=== PATIENT | female | born 1930 | race Caucasian/White ===

== ENCOUNTER 2016-07-12 13:05 | Inpatient (IN) ==
[2016-07-12] MEDS ORDERED: Dexamethasone 4 MG/ML VIAL ONE (13:14)
[2016-07-12] MEDS ORDERED: *HR* Succinylcholine 200 MG/10 ML VIAL IVP ONE (13:14)
[2016-07-12] MEDS ORDERED: *HR* FentaNYL (PF) 100 MCG/2 ML VIAL ONE (13:14)
[2016-07-12] MEDS ORDERED: *HR* Midazolam HCl 2 MG/2 ML VIAL ONE (13:14)
[2016-07-12] MEDS ORDERED: *HR* Propofol 200 MG/20 ML VIAL IVP ONE (13:14)
[2016-07-12] MEDS ORDERED: Ondansetron 4 MG/2 ML VIAL ONE (13:14)
[2016-07-12] MEDS ORDERED: Lidocaine 1% 20 ML MDV ID ONE (13:42)
[2016-07-12] MEDS ORDERED: CeFAZolin Pre 2,000 MG/100 ML 2,000 MG/100 ML BAG IVPB ONE (13:42)
[2016-07-12] MEDS ORDERED: Ringers Solution, Lactated 1,000 ML IVC SCH (13:45)
--- NOTE | 2016-07-12 13:46 | Urology History & Physical ---
Date of Encounter: 07/12/16 Time of Encounter: 13:44 Assessment and Plan (1) Hematuria Current Visit: Yes Status: Acute 85-year-old woman with a history of bladder erythema. This has been persistent. Cytology was negative. However, I recommend obtaining a bladder biopsy with bilateral retrograde pyelograms to confirm that there is no evidence of cancer here. We discussed the procedure which would be a cystoscopy and bladder biopsy with bilateral retrograde pyelograms. She was informed of the risks of the surgery which include but are not limited to bleeding, infection, injury to structures, need for further procedures, and the risk of anesthesia. She is willing to proceed. History of Present Illness Chief complaint: hematuria HPI: Ms. Patten is a 85-year-old woman with a history of hematuria and bladder erythema. She previously had a cystoscopy which showed areas of inflammation within the bladder. The erythema was persistent and she elected to undergo a cystoscopy with bladder biopsy and bilateral retrograde pyelograms. Past Med Surg Social Fam HX - Past Medical History Medical history: arthritis, cancer, CVA, GERD, hyperlipidemia, hypertension, osteoporosis Psychiatric history: anxiety, depression - Past Surgical History Surgical History: breast surgery - Social History Smoking Status: Never smoker Smokeless Tobacco Status: No Alcohol use: none Drug use: none Medications and Allergies Aspirin/Dipyridamole 25/200 MG [Aggrenox 25mg-200mg] 1 cap PO DAILY 12/24/14 [ History] ClonazePAM [Klonopin] 0.5 mg PO HS PRN 12/24/14 [History] Losartan/HCTZ [Hyzaar 50-12.5 Tablet] 1 each PO DAILY 12/24/14 [History] [place]-3 Fatty Acids [Fish Oil] 1,000 mg PO BID 12/24/14 [History] Omeprazole [PriLOSEC] 40 mg PO DAILY 12/24/14 [History] Potassium Chloride 10 meq PO DAILY 12/24/14 [History] Raloxifene HCl [Evista] 60 mg PO DAILY 12/24/14 [History] Simvastatin 20 mg PO HS 12/24/14 [History] Alendronate Sodium [Fosamax] 70 mg PO WE 06/18/16 [History] Allergies CURTIS Inhibitors Adverse Reaction (Verified 06/18/16 08:59) Cough codeine Adverse Reaction (Verified 06/18/16 08:59) Dizziness Review of Systems - Constitutional no chills, no fever(s) - EENT Nose, mouth and throat: no dizziness - Cardiovascular no chest pain - Respiratory no dyspnea - Gastrointestinal no nausea, no vomiting - Genitourinary Genitourinary: no flank pain, no hematuria - Musculoskeletal no back pain - Integumentary no erythema, no rash - Neurological no weakness - Psychiatric no suicidal ideation - Hematologic/Lymphatic no easy bleeding - Allergic/Immunologic no wheezing Exam - General physical appearance Present: well developed, well nourished, no distress - Eyes Absent: icteric - ENT Present: normal nares - Neck Present: trachea midline - Respiratory Present: normal respiratory effort - Cardiovascular Cardiovascular exam IM: RRR - Abdomen Abdomen: Present: soft Urology Results - Labs All other labs normal.
--- NOTE | 2016-07-12 13:58 | Anesthesia Evaluation PreOp ---
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 loss.) Other Medical History: Denies Any Significant HX, GERD Anesthesia History: No Prior Anesthetic Complications, Past Anesthesia Alcohol Use: none Drug use: none Medications and Allergies Aspirin/Dipyridamole 25/200 MG [Aggrenox 25mg-200mg] 1 cap PO DAILY 12/24/14 [ History] ClonazePAM [Klonopin] 0.5 mg PO HS PRN 12/24/14 [History] Losartan/HCTZ [Hyzaar 50-12.5 Tablet] 1 each PO DAILY 12/24/14 [History] [place]-3 Fatty Acids [Fish Oil] 1,000 mg PO BID 12/24/14 [History] Omeprazole [PriLOSEC] 40 mg PO DAILY 12/24/14 [History] Potassium Chloride 10 meq PO DAILY 12/24/14 [History] Raloxifene HCl [Evista] 60 mg PO DAILY 12/24/14 [History] Simvastatin 20 mg PO HS 12/24/14 [History] Alendronate Sodium [Fosamax] 70 mg PO WE 06/18/16 [History] Allergies CURTIS Inhibitors Adverse Reaction (Verified 07/12/16 13:52) Cough - Meds/Allergy Pre-op Review Medications Reviewed: Yes Allergies Reviewed: Yes Beta Blockers on Current Med List: No Anesthesia Results - Labs Laboratory Tests 07/03/15 06/02/16 06/02/16 10:30 09:39 09:39 Hgb 12.6 Hct 37.3 Plt Count 144 PT 11.1 INR 1.0 APTT 31.3 Sodium 144 Potassium 3.7 Chloride 108 Carbon Dioxide 26 BUN 23 H Creatinine 0.73 - Imaging EKG: report reviewed Anesthesia Exam Height: 4'10" Weight: 135 NPO (# of Hours): over 8 hours - HEENT Pupil (Motor): Pupils equal Mallampati: II Teeth: Prosthesis (Has dental posts) - 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
--- NOTE | 2016-07-12 14:55 | Operative Note ---
Date of procedure: 07/12/16 Pre-op diagnosis: Bladder lesion Post-op diagnosis: same Procedure: Cystoscopy, bilateral retrograde pyelograms, bladder biopsy. Implants: 18 Mongolian Hearn catheter. Complications: none. Anesthesia: BREE Surgeon: Gio Sutton Estimated blood loss (cc): 1 Specimen: bladder biopsies Condition: stable Disposition: PACU Procedure in Detail: Indications: Cleo is an 85-year-old woman who has a history of hematuria. In office cystoscopy showed evidence of small patches of erythema. She elected to undergo cystoscopy and bladder biopsy with bilateral trigger polygrams. She was informed of the risks of the procedure which include but are not limited to bleeding, infection, injury to other structures, need for further procedures, and the risk of anesthesia. She is willing to proceed. Procedure: After informed consent was obtained and was brought back to the operating room and placed in supine position. A timeout was performed. Gen. anesthesia was administered and a laryngeal mask airway was placed. She was placed in low lithotomy position. Her genitalia were prepped and draped in the usual sterile fashion. Cystoscopy was then performed. The anterior urethra was unremarkable. The left ureteral orifice was cannulated with a open ended catheter and a retrograde pyelogram was performed. There is no evidence of filling defect. There is no blunting of the calyces. The right ureteral orifice was then cannulated with the open-ended catheter. The retrograde pyelogram again showed a normal ureter. There is no evidence of hydronephrosis on the right side nor on the left side. There is no evidence of filling defect. The calyces appeared normal. There was a patch of erythema on the posterior wall and the dome. The biopsy forceps were inserted and the scope. 4 bladder biopsies were obtained from this area, including one from the trigone. The biopsy sites were then fulgurated using the [place]. The bladder was quite friable. Other locations began to bleed. It was difficult to cauterize all these areas. I felt to be best to leave a catheter in and met her for observation. The scope was then removed. An 18 Mongolian Hearn catheter was then placed. The catheter irrigated fairly clear. Cleo was then awakened from general anesthesia and brought to the recovery room in good condition. All sponge, needle, and instrument counts were correct.
--- NOTE | 2016-07-12 15:40 | Anesthesia Evaluation Post Op ---
Date of Encounter: 07/12/16 Time of Encounter: 15:15 - Vital Signs Vital Signs: Last Vital Signs Temp 97.6 F 07/12/16 15:27 Pulse 59 07/12/16 15:27 Resp 16 07/12/16 15:27 BP 166/72 07/12/16 15:27 Pulse Ox 100 07/12/16 15:27 - Lungs Lungs: Clear Ascult./Percussion - Airway Airway: Non-obstructed - Cardiovascular Regular Rate - Mental Status Mental Status: Alert & Oriented, Answers Appropriately - Pain Pain Scale: 3 - Nausea Vomiting Nausea Vomiting: Not Present - Hydration Hydration: NPO, Hearn catheter - Discharge PostOp Status: Transfer Patient to floor
[2016-07-12] MEDS ORDERED: *HR* Promethazine 25 MG/ML VIAL IVP PRN (16:03)
[2016-07-12] MEDS ORDERED: Naloxone 0.4 MG/ML INJ IVP PRN (16:03)
[2016-07-12] MEDS ORDERED: *HR* HYDROmorphone 2 MG/ML SYRINGE IVP PRN (16:03)
[2016-07-12] MEDS ORDERED: Ondansetron 4 MG/2 ML VIAL IVP PRN (16:03)
[2016-07-12] MEDS: 0.9 % Sodium Chloride 1,000 ML IVC SCH (16:49)
[2016-07-12] MEDS: clonazePAM 0.5 MG TABLET PO PRN (21:30)
[2016-07-13] MEDS: 0.9 % Sodium Chloride 1,000 ML IVC SCH ×3 (01:30→19:47)
[2016-07-13] MEDS: *HR* OxyCODONE/APAP 5/325 TABLET PO PRN (04:26)
--- NOTE | 2016-07-13 07:45 | Urology Progress Note ---
Date of Encounter: 07/13/16 Time of Encounter: 07:43 - Assessment and Plan (1) Hematuria Current Visit: Yes Status: Acute Assessment and plan: Continue catheter. I will keep her in house today and wait for her urine to clear. Check labs today. Hand irrigate prn. Consider changing catheter for CBI if bleeding persists. Progress Note Narrative: 85 year old woman s/p cystoscopy, bladder biopsy, and bilateral retrograde pyelograms. POD #1. She had some hematuria overnight. I irrigated her catheter today. Only a small amount of clot returned. Objective Initial Vital Signs Temp Pulse Resp BP Pulse Ox 98.0 F 59 16 142/66 98 07/12/16 13:58 07/12/16 13:58 07/12/16 13:58 07/12/16 13:58 07/12/16 13:58 - General physical appearance Present: well developed, well nourished, no distress - Respiratory Present: normal respiratory effort - Abdomen Present: soft - Genitourinary Urine Appearance: Present: Hematuria - VTE Documentation of Mechanical Device: Intermittent pneumatic compression device Consult Discharge Plan - Plan Referrals: Lizabeth Cummings DO [Primary Care Provider] -
[2016-07-13] MEDS: Losartan/HCTZ 50-12.5 TABLET PO SCH (07:59)
[2016-07-13 09:01] LABS: Basophils % 0.2 %; Hematocrit 35.3 % (35.3-44.9); Hemoglobin 12.2 g/dL (11.5-15.4); Immature Granulocytes % 0.3 % (0-4); Lymphocytes # 1.5 K/mcL (0.6-4.6); Lymphocytes % 23.5 %; Mean Corpuscular HGB Conc 34.6 g/dL (31.6-35.5); Mean Corpuscular Hemoglobin 34.3 pg (28.0-33.3); Mean Corpuscular Volume 99.2 fL (83.0-100.0); Mean Platelet Volume 9.9 fL (9.4-12.4); Monocytes # 0.5 K/mcL (0.0-1.3); Monocytes % 7.7 %; Neutrophils # 4.3 K/mcL (1.6-8.9); Platelet Count 136 K/mcL (140-400); Red Blood Count 3.56 M/mcL (3.82-4.97); Red Cell Distribution Width 11.8 % (11.5-14.5); Segmented Neutrophils % 68.3 %
[2016-07-13 09:10] LABS: BUN/Creatinine Ratio 22 (6-26); Blood Urea Nitrogen 15 mg/dL (7-20); Calcium 8.4 mg/dL (8.6-10.8); Carbon Dioxide 22 mEq/L (19-29); Chloride 110 mEq/L (98-109); Glucose 101 mg/dL (70-99); Osmolality,Calculated 289 (280-300); Potassium 3.8 mEq/L (3.5-4.5); Sodium 139 mEq/L (136-145); eGFR For African Americans > 60 (> 60); eGFR For Non-African Americans > 60 (> 60)
[2016-07-13] MEDS: clonazePAM 0.5 MG TABLET PO PRN (23:20)
[2016-07-14] MEDS: 0.9 % Sodium Chloride 1,000 ML IVC SCH ×4 (06:07→20:06)
--- NOTE | 2016-07-14 07:16 | Urology Progress Note ---
Date of Encounter: 07/14/16 Time of Encounter: 07:14 - Assessment and Plan (1) Hematuria Current Visit: Yes Status: Acute Assessment and plan: Continue phelan catheter for now. Will reassess this afternoon. If urine remains bloody, will need to change out to three way for CBI. Will hold off on return to OR for now. Check labs. Progress Note Narrative: Still with hematuria overnight. I hand irrigated out a small amount of clot, but the urine remains somewhat bloody. Objective Initial Vital Signs Temp Pulse Resp BP Pulse Ox 98.0 F 59 16 142/66 98 07/12/16 13:58 07/12/16 13:58 07/12/16 13:58 07/12/16 13:58 07/12/16 13:58 - General physical appearance Present: well developed, well nourished, no distress - Respiratory Present: normal respiratory effort - Abdomen Present: soft - Genitourinary Urine Appearance: Present: Hematuria - Labs 07/13/16 08:15 07/13/16 08:15 Diabetes panel 07/13/16 Range/Units 08:15 Sodium 139 (136-145) mEq/L Potassium 3.8 (3.5-4.5) mEq/L Chloride 110 H (98-109) mEq/L Carbon Dioxide 22 (19-29) mEq/L BUN 15 (7-20) mg/dL Creatinine 0.68 (0.57-1.11) mg/dL Glucose 101 H (70-99) mg/dL Calcium 8.4 L (8.6-10.8) mg/dL Calcium panel 07/13/16 Range/Units 08:15 Calcium 8.4 L (8.6-10.8) mg/dL Pituitary panel 07/13/16 Range/Units 08:15 Sodium 139 (136-145) mEq/L Potassium 3.8 (3.5-4.5) mEq/L Chloride 110 H (98-109) mEq/L Carbon Dioxide 22 (19-29) mEq/L BUN 15 (7-20) mg/dL Creatinine 0.68 (0.57-1.11) mg/dL Glucose 101 H (70-99) mg/dL Calcium 8.4 L (8.6-10.8) mg/dL Adrenal panel 07/13/16 Range/Units 08:15 Sodium 139 (136-145) mEq/L Potassium 3.8 (3.5-4.5) mEq/L Chloride 110 H (98-109) mEq/L Carbon Dioxide 22 (19-29) mEq/L BUN 15 (7-20) mg/dL Creatinine 0.68 (0.57-1.11) mg/dL Glucose 101 H (70-99) mg/dL Calcium 8.4 L (8.6-10.8) mg/dL - VTE Documentation of Mechanical Device: Intermittent pneumatic compression device Consult Discharge Plan - Plan Referrals: Lizabeth Cummings DO [Primary Care Provider] - 07/19/16 8:45 am ( )
[2016-07-14] MEDS: Losartan/HCTZ 50-12.5 TABLET PO SCH (07:35)
[2016-07-14 08:34] LABS: Hematocrit 34.8 % (35.3-44.9); Hemoglobin 11.6 g/dL (11.5-15.4)
--- NOTE | 2016-07-14 17:29 | Event Note ---
Date of Encounter: 07/14/16 Time of Encounter: 17:29 I changed out the 18 [place]an catheter for a [address] Some clot was irrigated out. CBI was started.
[2016-07-14] MEDS: clonazePAM 0.5 MG TABLET PO PRN (22:47)
[2016-07-15] MEDS: 0.9 % Sodium Chloride 1,000 ML IVC SCH ×3 (04:10→21:28)
[2016-07-15 04:32] LABS: INR 1.1; Prothrombin Time 11.7 Seconds (9.4-12.1)
[2016-07-15 05:30] LABS: Basophils % 0.4 %; Eosinophils # 0.1 K/mcL (0.0-0.6); Eosinophils % 2.1 %; Hemoglobin 10.3 g/dL (11.5-15.4); Immature Granulocytes % 0.6 % (0-4); Lymphocytes # 1.9 K/mcL (0.6-4.6); Lymphocytes % 28.2 %; Mean Corpuscular HGB Conc 34.3 g/dL (31.6-35.5); Mean Corpuscular Hemoglobin 34.1 pg (28.0-33.3); Mean Corpuscular Volume 99.3 fL (83.0-100.0); Monocytes # 0.6 K/mcL (0.0-1.3); Monocytes % 8.9 %; Platelet Count 126 K/mcL (140-400); Red Blood Count 3.02 M/mcL (3.82-4.97); Red Cell Distribution Width 12.2 % (11.5-14.5); Segmented Neutrophils % 59.8 %
[2016-07-15 06:56] LABS: BUN/Creatinine Ratio 20 (6-26); Blood Urea Nitrogen 13 mg/dL (7-20); Carbon Dioxide 21 mEq/L (19-29); Chloride 113 mEq/L (98-109); Glucose 90 mg/dL (70-99); Osmolality,Calculated 294 (280-300); Potassium 3.6 mEq/L (3.5-4.5); Sodium 142 mEq/L (136-145); eGFR For African Americans > 60 (> 60); eGFR For Non-African Americans > 60 (> 60)
--- NOTE | 2016-07-15 07:20 | Urology Progress Note ---
Date of Encounter: 07/15/16 Time of Encounter: 07:19 - Assessment and Plan (1) Hematuria Current Visit: Yes Status: Acute Assessment and plan: 85 year old woman with continued hematuria. 1. Recommend proceeding to OR tonight for cystoscopy, clot evacuation, and fulguration. All risks were informed. She is willing to proceed. NPO today. Progress Note Narrative: 85 year old woman with hematuria. I started CBI yesterday. Her hematocrit continues to drift down. Urine is light pink on moderate CBI. Objective Initial Vital Signs Temp Pulse Resp BP Pulse Ox 98.0 F 59 16 142/66 98 07/12/16 13:58 07/12/16 13:58 07/12/16 13:58 07/12/16 13:58 07/12/16 13:58 - General physical appearance Present: well developed, well nourished, no distress - Respiratory Present: normal respiratory effort - Abdomen Present: soft - Genitourinary Present: normal external genitalia Urine Appearance: Present: Hematuria (pink on moderate cbi) - Labs 07/15/16 03:05 07/15/16 03:05 Diabetes panel 07/15/16 Range/Units 03:05 Sodium 142 (136-145) mEq/L Potassium 3.6 (3.5-4.5) mEq/L Chloride 113 H (98-109) mEq/L Carbon Dioxide 21 (19-29) mEq/L BUN 13 (7-20) mg/dL Creatinine 0.65 (0.57-1.11) mg/dL Glucose 90 (70-99) mg/dL Calcium 8.0 L (8.6-10.8) mg/dL Calcium panel 07/15/16 Range/Units 03:05 Calcium 8.0 L (8.6-10.8) mg/dL Pituitary panel 07/15/16 Range/Units 03:05 Sodium 142 (136-145) mEq/L Potassium 3.6 (3.5-4.5) mEq/L Chloride 113 H (98-109) mEq/L Carbon Dioxide 21 (19-29) mEq/L BUN 13 (7-20) mg/dL Creatinine 0.65 (0.57-1.11) mg/dL Glucose 90 (70-99) mg/dL Calcium 8.0 L (8.6-10.8) mg/dL Adrenal panel 07/15/16 Range/Units 03:05 Sodium 142 (136-145) mEq/L Potassium 3.6 (3.5-4.5) mEq/L Chloride 113 H (98-109) mEq/L Carbon Dioxide 21 (19-29) mEq/L BUN 13 (7-20) mg/dL Creatinine 0.65 (0.57-1.11) mg/dL Glucose 90 (70-99) mg/dL Calcium 8.0 L (8.6-10.8) mg/dL - VTE Documentation of Mechanical Device: Intermittent pneumatic compression device Consult Discharge Plan - Plan Referrals: Lizabeth Cummings DO [Primary Care Provider] - 07/19/16 8:45 am ( )
[2016-07-15] MEDS: Levofloxacin 500 MG/100 ML 500 MG/100 ML BAG IVPB SCH (09:49)
[2016-07-15] MEDS: Losartan/HCTZ 50-12.5 TABLET PO SCH (09:49)
--- NOTE | 2016-07-15 11:51 | Anesthesia Evaluation PreOp ---
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) Other Medical History: GERD Anesthesia History: No Prior Anesthetic Complications, Past Anesthesia (tka, cystoscopy) Alcohol Use: none Drug use: none Medications and Allergies Aspirin/Dipyridamole 25/200 MG [Aggrenox 25mg-200mg] 1 cap PO DAILY 12/24/14 [ History] ClonazePAM [Klonopin] 0.5 mg PO HS PRN 12/24/14 [History] Losartan/HCTZ [Hyzaar 50-12.5 Tablet] 1 each PO DAILY 12/24/14 [History] [place]-3 Fatty Acids [Fish Oil] 1,000 mg PO BID 12/24/14 [History] Omeprazole [PriLOSEC] 40 mg PO DAILY 12/24/14 [History] Potassium Chloride 10 meq PO DAILY 12/24/14 [History] Raloxifene HCl [Evista] 60 mg PO DAILY 12/24/14 [History] Simvastatin 20 mg PO HS 12/24/14 [History] Alendronate Sodium [Fosamax] 70 mg PO WE 06/18/16 [History] Allergies CURTIS Inhibitors Adverse Reaction (Verified 07/12/16 13:52) Cough - Meds/Allergy Pre-op Review Medications Reviewed: Yes Allergies Reviewed: Yes Beta Blockers on Current Med List: No Anesthesia Results - Labs 07/15/16 03:05 07/15/16 03:05 - Imaging EKG: report reviewed (sr/pvc) Anesthesia Exam O2 Sat Weight 64 kg O2 Sat by Pulse Oximetry 96 O2 Sat by Pulse Oximetry 94 O2 Sat by Pulse Oximetry 94 O2 Sat by Pulse Oximetry 96 O2 Sat by Pulse Oximetry 93 Vital Signs Temp Pulse Resp BP Pulse Ox 98.0 F 59 16 142/66 98 07/12/16 13:58 07/12/16 13:58 07/12/16 13:58 07/12/16 13:58 07/12/16 13:58 Height: 1.46 Weight: 64 NPO (# of Hours): >8 - HEENT Pupil (Motor): Pupils equal, EOMI Mallampati: II Teeth: Prosthesis Denture Type: Upper: Complete, Lower: Complete Oral Opening: Greater than 3 - POWDERED SUGAR SUPERVISOR POWDERED SUGAR SUPERVISOR Motor: Normal RUE, Normal LUE, Normal Face, Deficit RLE, Deficit LLE POWDERED SUGAR SUPERVISOR Sensory: Normal: RUE, LUE, Face, Deficit: RLE, LLE - Cardiac Rhythm: Regular Murmur: None - Pulmonary Breath Sounds: bilateral Clear Respiratory Effort: Symmetrical Anesthesia Assess/Plan ASA Score: 3 Modified [place] Scale for Level of Consciousness: Cooperative, oriented, and tranquil Anesthetic Plan: General Monitoring Plan: Standard Monitors Recovery Plan: PACU
--- NOTE | 2016-07-15 14:40 | Event Note ---
Date of Encounter: 07/15/16 Time of Encounter: 14:40 Urine appeared more clear this afternoon on slow CBI. I will cancel the case today. We will consider OR tomorrow if HCt hasn't stabilized.
[2016-07-15] MEDS: *HR* OxyCODONE/APAP 5/325 TABLET PO PRN (21:39)
[2016-07-15] MEDS: clonazePAM 0.5 MG TABLET PO PRN (23:15)
[2016-07-16] MEDS: 0.9 % Sodium Chloride 1,000 ML IVC SCH ×3 (05:41→21:43)
[2016-07-16 06:36] LABS: Hematocrit 28.8 % (35.3-44.9); Hemoglobin 9.8 g/dL (11.5-15.4)
[2016-07-16] MEDS ORDERED: 0.9 % Sodium Chloride 500 ML IVC ONE (07:05)
--- NOTE | 2016-07-16 07:05 | Urology Progress Note ---
Date of Encounter: 07/16/16 Time of Encounter: 07:03 - Assessment and Plan (1) Hematuria Current Visit: Yes Status: Acute Assessment and plan: Hematuria seems improved. Urine color clear on slow cbi. HCT has drifted down again. Will stop CBI. Will give bolus of normal saline for slightly low HCT. Clear liquid diet. Will repeat H&H around 12pm. Progress Note Narrative: Urine is much more clear today. On very slow CBI. BP dropped into the 90's systolic. No lightheadedness. Objective Initial Vital Signs Temp Pulse Resp BP Pulse Ox 98.0 F 59 16 142/66 98 07/12/16 13:58 07/12/16 13:58 07/12/16 13:58 07/12/16 13:58 07/12/16 13:58 - General physical appearance Present: well developed, well nourished, no distress - Respiratory Present: normal respiratory effort - Abdomen Present: soft - Genitourinary Urine Appearance: Present: Clear - Labs 07/16/16 06:08 07/15/16 03:05 - VTE Documentation of Mechanical Device: Intermittent pneumatic compression device Consult Discharge Plan - Plan Referrals: Lizabeth Cummings DO [Primary Care Provider] - 07/19/16 8:45 am ( )
[2016-07-16] MEDS: Levofloxacin 500 MG/100 ML 500 MG/100 ML BAG IVPB SCH (08:13)
[2016-07-16] MEDS: Losartan/HCTZ 50-12.5 TABLET PO SCH (11:56)
[2016-07-16 12:00] LABS: Hematocrit 31.5 % (35.3-44.9); Hemoglobin 11.1 g/dL (11.5-15.4)
[2016-07-16] MEDS ORDERED: *HR* FentaNYL (PF) 100 MCG/2 ML VIAL ONE (18:26)
[2016-07-16] MEDS ORDERED: *HR* Propofol 200 MG/20 ML VIAL IVP ONE (18:26)
[2016-07-16] MEDS ORDERED: Lidocaine -MPF 2% 2 ML VIAL ONE (18:26)
[2016-07-16] MEDS ORDERED: Ondansetron 4 MG/2 ML VIAL ONE (19:18)
--- NOTE | 2016-07-16 19:32 | Operative Note ---
Date of procedure: 07/16/16 Pre-op diagnosis: Hematuria Post-op diagnosis: same Procedure: Cystoscopy, clot evacuation, fulguration Implants: [address]. Complications: none. Anesthesia: BREE Surgeon: Gio Sutton Estimated blood loss (cc): 1 Specimen: none Condition: stable Disposition: PACU Procedure in Detail: Indications: Ms. Patten is an 85-year-old woman who underwent a cystoscopy and bladder biopsy on July 12, 2016. She has had persistent hematuria. Conservative measures have not been successful with continuous bladder irrigation. She elected to undergo a cystoscopy, clot evacuation and fulguration. She is aware of the risks of the procedure including but not limited to bleeding, infection, injury to other structures, need for further procedures, bladder perforation, and the risk of anesthesia. She is willing to proceed. Procedure: After informed consent was obtained the patient was brought back to the operating room and placed in the supine position. A timeout was performed. Gen. anesthesia was administered and an laryngeal mask airway was placed. She was then placed in lithotomy position. Her genitalia were prepped and draped in the usual sterile fashion. Using the resector sheath and the visual obturator cystoscopy was performed. The urethra was unremarkable. Upon entering the bladder there is only a small amount of clot. There is an area off to the left anterior aspect of the bladder where a small clot was noted. This was freed off the bladder in the area was cauterized. Along the posterior wall the bladder was a very raw surface where I had previously cauterized. I used the resecting loop and the rollerball to liberally fulgurate this area. Unfortunately there continued to be a very slow bleed from the suction and the bladder. There is no other area of arterial bleed. After observing the bladder it seemed that the bleeding was fairly minimal and I felt that it would hopefully stop with the use of continuous bladder irrigation. At this point I removed the resector sheath. A 22 Amharic three-way catheter was placed. The bladder irrigated clear. Continuous bladder irrigation was resumed. The patient was then awakened from general anesthesia and brought to the recovery room in good condition. All sponge, needle, and instrument counts were correct.
[2016-07-16] MEDS ORDERED: *HR* HYDROmorphone (PF) 1 MG/ML SYRINGE IVP PRN (19:49)
[2016-07-16] MEDS ORDERED: *HR* HYDROmorphone (PF) 1 MG/ML SYRINGE ONE (19:49)
--- NOTE | 2016-07-16 20:13 | Anesthesia Evaluation Post Op ---
Date of Encounter: 07/16/16 Time of Encounter: 20:12 - Vital Signs Vital Signs: Vital Signs/O2 Sat, Most Current Temp Pulse Resp BP Pulse Ox 99.5 F 61 12 135/85 99 07/16/16 19:58 07/16/16 19:58 07/16/16 19:58 07/16/16 19:58 07/16/16 19:58 - Lungs Lungs: Clear Ascult./Percussion - Airway Airway: Non-obstructed - Cardiovascular Regular Rate - Mental Status Mental Status: Alert & Oriented, Answers Appropriately - Pain Pain Scale: 3 Pain Scale used: Numeric (1 - 10) - Nausea Vomiting Nausea Vomiting: Not Present - Hydration Hydration: NPO, Hearn catheter - Discharge PostOp Status: Transfer Patient to floor
[2016-07-16] MEDS ORDERED: *HR* HYDROmorphone 2 MG/ML SYRINGE IVP PRN (20:29)
[2016-07-16] MEDS ORDERED: Ondansetron 4 MG/2 ML VIAL IVP PRN (20:29)
[2016-07-16] MEDS ORDERED: *HR* OxyCODONE/APAP 5/325 TABLET PO PRN (20:29)
[2016-07-16] MEDS ORDERED: clonazePAM 0.5 MG TABLET PO PRN (20:29)
[2016-07-16] MEDS ORDERED: *HR* Promethazine 25 MG/ML VIAL IVP PRN (20:29)
[2016-07-16] MEDS ORDERED: Naloxone 0.4 MG/ML INJ IVP PRN (20:29)
[2016-07-17] MEDS: 0.9 % Sodium Chloride 1,000 ML IVC SCH (06:07)
[2016-07-17 06:41] LABS: Basophils % 0.4 %; Eosinophils # 0.2 K/mcL (0.0-0.6); Eosinophils % 2.9 %; Immature Granulocytes % 0.4 % (0-4); Lymphocytes # 1.4 K/mcL (0.6-4.6); Lymphocytes % 26.5 %; Mean Corpuscular HGB Conc 33.9 g/dL (31.6-35.5); Mean Corpuscular Hemoglobin 33.7 pg (28.0-33.3); Mean Corpuscular Volume 99.3 fL (83.0-100.0); Mean Platelet Volume 10.1 fL (9.4-12.4); Monocytes # 0.5 K/mcL (0.0-1.3); Monocytes % 10.4 %; Neutrophils # 3.1 K/mcL (1.6-8.9); Platelet Count 104 K/mcL (140-400); Red Blood Count 2.82 M/mcL (3.82-4.97); Red Cell Distribution Width 12.2 % (11.5-14.5); Segmented Neutrophils % 59.4 %
[2016-07-17 06:53] LABS: Hemoglobin 9.5 g/dL (11.5-15.4)
[2016-07-17 06:55] LABS: BUN/Creatinine Ratio 16 (6-26); Blood Urea Nitrogen 10 mg/dL (7-20); Calcium 7.9 mg/dL (8.6-10.8); Carbon Dioxide 24 mEq/L (19-29); Chloride 113 mEq/L (98-109); Glucose 85 mg/dL (70-99); Osmolality,Calculated 290 (280-300); Potassium 3.6 mEq/L (3.5-4.5); Sodium 141 mEq/L (136-145); eGFR For African Americans > 60 (> 60); eGFR For Non-African Americans > 60 (> 60)
[2016-07-17] MEDS ORDERED: Losartan/HCTZ 50-12.5 TABLET PO SCH (09:00)
[2016-07-17] MEDS ORDERED: Levofloxacin 250 MG/50 ML 250 MG/50 ML BAG IVPB SCH ×2 (09:00)
--- NOTE | 2016-07-17 09:43 | Urology Progress Note ---
Date of Encounter: 07/17/16 Time of Encounter: 09:42 - Assessment and Plan (1) Hematuria Current Visit: Yes Status: Acute Assessment and plan: hematuria seems to have improved after fulguration. will plan to discharge today with cath in place. Progress Note Subjective: no new complaints Objective Initial Vital Signs Temp Pulse Resp BP Pulse Ox 98.0 F 59 16 142/66 98 07/12/16 13:58 07/12/16 13:58 07/12/16 13:58 07/12/16 13:58 07/12/16 13:58 - General physical appearance Present: well developed, no distress - Additional Exam urine fairly clear off CBI. - Labs 07/17/16 05:52 07/17/16 05:52 Diabetes panel 07/17/16 Range/Units 05:52 Sodium 141 (136-145) mEq/L Potassium 3.6 (3.5-4.5) mEq/L Chloride 113 H (98-109) mEq/L Carbon Dioxide 24 (19-29) mEq/L BUN 10 (7-20) mg/dL Creatinine 0.62 (0.57-1.11) mg/dL Glucose 85 (70-99) mg/dL Calcium 7.9 L (8.6-10.8) mg/dL Calcium panel 07/17/16 Range/Units 05:52 Calcium 7.9 L (8.6-10.8) mg/dL Pituitary panel 07/17/16 Range/Units 05:52 Sodium 141 (136-145) mEq/L Potassium 3.6 (3.5-4.5) mEq/L Chloride 113 H (98-109) mEq/L Carbon Dioxide 24 (19-29) mEq/L BUN 10 (7-20) mg/dL Creatinine 0.62 (0.57-1.11) mg/dL Glucose 85 (70-99) mg/dL Calcium 7.9 L (8.6-10.8) mg/dL Adrenal panel 07/17/16 Range/Units 05:52 Sodium 141 (136-145) mEq/L Potassium 3.6 (3.5-4.5) mEq/L Chloride 113 H (98-109) mEq/L Carbon Dioxide 24 (19-29) mEq/L BUN 10 (7-20) mg/dL Creatinine 0.62 (0.57-1.11) mg/dL Glucose 85 (70-99) mg/dL Calcium 7.9 L (8.6-10.8) mg/dL - VTE Documentation of Mechanical Device: Intermittent pneumatic compression device Consult Discharge Plan - Plan Referrals: Lizabeth Cummings DO [Primary Care Provider] - 07/19/16 8:45 am ( )
--- NOTE | 2016-07-17 10:29 | Discharge Summary ---
Date of Encounter: 07/17/16 Time of Encounter: 10:27 - Discharge Diagnosis (1) Hematuria Priority: Primary Status: Resolved - Discharge Medications Prescriptions: Acetaminophen [Tylenol] 325 mg PO Q4HR PRN #30 tablet PRN Reason: Pain Cefdinir [Omnicef] 300 mg PO BID #14 capsule Home Medications: ClonazePAM [Klonopin] 0.5 mg PO HS PRN 12/24/14 [History] Losartan/HCTZ [Hyzaar 50-12.5 Tablet] 1 each PO DAILY 12/24/14 [History] [place]-3 Fatty Acids [Fish Oil] 1,000 mg PO BID 12/24/14 [History] Omeprazole [PriLOSEC] 40 mg PO DAILY 12/24/14 [History] Potassium Chloride 10 meq PO DAILY 12/24/14 [History] Simvastatin 20 mg PO HS 12/24/14 [History] Alendronate Sodium [Fosamax] 70 mg PO WE 06/18/16 [History] Acetaminophen [Tylenol] 325 mg PO Q4HR PRN #30 tablet 07/17/16 [Rx] Cefdinir [Omnicef] 300 mg PO BID #14 capsule 07/17/16 [Rx] Allergies/Adverse Reactions: Allergies CURTIS Inhibitors Adverse Reaction (Verified 07/12/16 13:52) Cough Labs on day of discharge: Labs from last 24 hours 07/17/16 07/17/16 07/16/16 05:52 05:52 11:52 WBC 5.2 RBC 2.82 L Hgb 9.5 L D 11.1 L Hct 28.0 L 31.5 L MCV 99.3 MCH 33.7 H MCHC 33.9 RDW 12.2 Plt Count 104 L MPV 10.1 Immature Gran % 0.4 Seg Neutrophils % 59.4 Lymphocytes % 26.5 Monocytes % 10.4 Eosinophils % 2.9 Basophils % 0.4 Neutrophils # 3.1 Lymphocytes # 1.4 Monocytes # 0.5 Eosinophils # 0.2 Basophils # 0.0 Sodium 141 Potassium 3.6 Chloride 113 H Carbon Dioxide 24 BUN 10 Creatinine 0.62 Est GFR ( Amer) > 60 Est GFR (Non-Af Amer) > 60 BUN/Creatinine Ratio 16 Glucose 85 Calculated Osmolality 290 Calcium 7.9 L - Impressions ITS Impressions Retrograde Pyelogram 07/12/16 14:28 IMPRESSION: Intraprocedural fluoroscopic spot images as above. See separate procedure report for more information. D/ / Josh Katz MD / Josh Katz MD Interpreting Provider: Josh Katz MD Date of admission: 07/15/16 07:38 Primary care physician: iLzabeth Cummings DO Consults: 07/16/16 07:05 Consult to Occupational Therapy [CONS] Routine Comment: Evaluate, develop and implement POC Consult to Physical Therapy [CONS] Routine Comment: Evaluate, develop and implement POC Discharging clinician: Cristóbal Rosenberg Anticipated date of discharge: 07/17/16 - Patient Status Disposition: Home, Self-Care Condition: Good Functional capacity at discharge: independent ambulation Overall status at discharge: patient is progressing back to baseline - Discharge Instructions Follow Up With: Lizabeth Cummings DO [Primary Care Provider] - 07/19/16 8:45 am ( ) Gio Sutton MD [Partnered Physician] - (Next week) Additional Instructions: Keep catheter in place at discharge. Placed plug and third port of catheter Expect some hematuria even after discharge. The urine may look reddish in color but as long as it is draining there is no concern Call if very dark blood or the catheter stops draining Avoid all NSAIDs and anticoagulants Follow-up next week with Dr. Sutton - Diet and Activity Activity: resume usual activities as tolerated Diet: advance to your usual diet - Hospital Course Hospital course: Ms. Patten is a 85 year old female status post transurethral resection of bladder tumor by Dr. Sutton. Hematuria complications from the procedure. Fulguration yesterday. Hematuria has cleared significantly overnight and remains very light off CBI. - Time Spent with Patient Total time spent providing and/or coordinating discharge services: Exam Initial Vital Signs Temp Pulse Resp BP Pulse Ox 98.0 F 59 16 142/66 98 07/12/16 13:58 07/12/16 13:58 07/12/16 13:58 07/12/16 13:58 07/12/16 13:58 - General physical appearance Present: well developed, no distress - Additional Findings Very light almost clear off CBI - VTE Documentation of Mechanical Device: Intermittent pneumatic compression device
[2016-07-17] MEDS ORDERED: FLU VACC QS2016-17 36MOS UP/PF 0.5 ML SYRINGE IM ONE (10:47)
[2016-07-17 12:27] VITALS: BP 110/70
== END 2016-07-17 13:33 | disposition home or self-care (01) | DRG 669 ==
LOC: 2ANU 13:05 → SAMDAY 13:05 → 3BNU 15:52 → 2ANU 07-13 03:31
PROVIDERS: ADMIT Urology; ATTEND Urology

== ENCOUNTER 2017-09-29 11:40 | Observation (INO) ==
[2017-09-29] MEDS ORDERED: Ondansetron 4 MG/2 ML VIAL IVP PRN (12:10)
[2017-09-29] MEDS ORDERED: Naloxone 0.4 MG/ML INJ IVP PRN (12:10)
[2017-09-29] MEDS ORDERED: Acetaminophen 325 MG TABLET PO PRN (12:10)
[2017-09-29] MEDS ORDERED: OXYCODONE Oral CONC 10 MG/0.5 ML ORAL.SYG SL PRN (12:10)
[2017-09-29] MEDS ORDERED: *HR* Belladonna Alkaloids/Opium 30 MG RECTAL SUPPOSITORY RC PRN (12:10)
[2017-09-29] MEDS ORDERED: clonazePAM 0.5 MG TABLET PO PRN (12:14)
[2017-09-29 13:30] LABS: Basophils % 0.6 %; Eosinophils # 0.1 K/mcL (0.0-0.6); Eosinophils % 1.5 %; Hematocrit 34.2 % (35.3-44.9); Hemoglobin 11.7 g/dL (11.5-15.4); Immature Granulocytes % 0.6 % (0-4); Lymphocytes # 1.5 K/mcL (0.6-4.6); Lymphocytes % 26.9 %; Mean Corpuscular HGB Conc 34.2 g/dL (31.6-35.5); Mean Corpuscular Hemoglobin 35.5 pg (28.0-33.3); Mean Corpuscular Volume 103.6 fL (83.0-100.0); Monocytes # 0.5 K/mcL (0.0-1.3); Monocytes % 9.3 %; Neutrophils # 3.3 K/mcL (1.6-8.9); Platelet Count 176 K/mcL (140-400); Red Cell Distribution Width 14.2 % (11.5-14.5); Segmented Neutrophils % 61.1 %
[2017-09-29] MEDS: 0.9 % Sodium Chloride 1,000 ML IVC SCH (13:58)
[2017-09-29 14:02] LABS: BUN/Creatinine Ratio 38 (6-26); Blood Urea Nitrogen 23 mg/dL (8-23); Calcium 9.3 mg/dL (8.6-10.3); Carbon Dioxide 27 mEq/L (23-29); Chloride 111 mEq/L (98-107); Glucose 99 mg/dL (70-105); Osmolality,Calculated 300 (280-300); Potassium 3.6 mEq/L (3.5-5.1); Sodium 143 mEq/L (136-145); eGFR For African Americans > 60 (> 60); eGFR For Non-African Americans > 60 (> 60)
--- NOTE | 2017-09-29 16:09 | Urology History & Physical ---
Date of Encounter: 09/29/17 Time of Encounter: 16:04 Assessment and Plan (1) Hematuria Current Visit: No Status: Acute 86-year-old woman with a history of gross hematuria. She is admitted for observation. We may need to insert a 3-way catheter and start continuous bladder irrigation depending upon her urine color. Labs are stable. We will closely follow her bleeding. If it does not improve with conservative approach , we may need to proceed with cystoscopy and fulguration. Qualifiers: Hematuria type: gross Qualified Code(s): R31.0 - Gross hematuria History of Present Illness Chief complaint: Hematuria HPI: Ms. Patten is a 86 year old female presents with hematuria. She was seen in the urology clinic today. She has had a 2-3 day history of gross hematuria which is getting worse. A 22-[place] catheter was placed in the office. She was hand irrigated and a small amount of clot was irrigated out. She was admitted for further care. She denies any lightheadedness or dizziness. She denies any recent trauma. She has a history of hemorrhagic cystitis. She has no prior history of radiation, but she has had spontaneous bleeds in the past. Past Med Surg Social Fam HX - Past Medical History Medical history: arthritis, cancer, CVA, GERD, hyperlipidemia, hypertension, osteoporosis Psychiatric history: anxiety, depression - Past Surgical History Surgical History: breast surgery, cataract - Social History Smoking Status: Never smoker Smokeless Tobacco Status: No Alcohol use: none Drug use: none - Family History Mother Hx Family Endocrine Disorder: Yes Medications and Allergies Losartan/HCTZ [Hyzaar 50-12.5 Tablet] 1 each PO DAILY 12/24/14 [History] [place]-3 Fatty Acids [Fish Oil] 1,000 mg PO BID 12/24/14 [History] Omeprazole [PriLOSEC] 40 mg PO DAILY 12/24/14 [History] Potassium Chloride 10 meq PO DAILY 12/24/14 [History] Simvastatin 20 mg PO HS 12/24/14 [History] clonazePAM [Klonopin] 0.5 mg PO HS PRN 12/24/14 [History] Alendronate Sodium [Fosamax] 70 mg PO WE 06/18/16 [History] Acetaminophen [Tylenol] 325 mg PO Q4HR PRN #30 tablet 07/17/16 [Rx] Cefdinir [Omnicef] 300 mg PO BID #14 capsule 07/17/16 [Rx] 3 Allergy/AdvReac Type Severity Reaction Status Date / Time CURTIS Inhibitors AdvReac Cough Verified 07/12/16 13:52 Review of Systems - Constitutional no chills, no fever(s) - EENT Nose, mouth and throat: no dizziness - Cardiovascular no chest pain - Respiratory no dyspnea - Gastrointestinal no nausea, no vomiting - Genitourinary Genitourinary: hematuria, no flank pain - Musculoskeletal no back pain - Integumentary no erythema, no rash - Neurological no weakness - Psychiatric no suicidal ideation - Hematologic/Lymphatic no easy bleeding - Allergic/Immunologic no wheezing Exam Initial Vital Signs Temp Pulse Resp BP Pulse Ox 97.9 F 58 16 141/68 98 09/29/17 12:20 09/29/17 12:20 09/29/17 12:20 09/29/17 12:20 09/29/17 12:20 - General physical appearance Present: well developed, well nourished, no distress - Eyes Absent: icteric - ENT Present: normal nares - Neck Present: trachea midline - Respiratory Present: normal respiratory effort - Cardiovascular Cardiovascular exam IM: RRR - Abdomen Abdomen: Present: soft - Genitourinary Present: normal external genitalia - Integumentary Present: no rash - Neurologic Present: normal coordination - Musculoskeletal Present: normal gait Urology Results - Labs 09/29/17 13:00 09/29/17 13:00 Abnormal lab results RBC 3.30 M/mcL (3.82-4.97) L 09/29/17 13:00 Hct 34.2 % (35.3-44.9) L 09/29/17 13:00 MCV 103.6 fL (83.0-100.0) H 09/29/17 13:00 MCH 35.5 pg (28.0-33.3) H 09/29/17 13:00 MPV 9.0 fL (9.4-12.4) L 09/29/17 13:00 Chloride 111 mEq/L (98-107) H 09/29/17 13:00 BUN/Creatinine Ratio 38 (6-26) H 09/29/17 13:00 Diabetes panel 09/29/17 Range/Units 13:00 Sodium 143 (136-145) mEq/L Potassium 3.6 (3.5-5.1) mEq/L Chloride 111 H (98-107) mEq/L Carbon Dioxide 27 (23-29) mEq/L BUN 23 (8-23) mg/dL Creatinine 0.60 (0.60-1.20) mg/dL Glucose 99 (70-105) mg/dL Calcium 9.3 (8.6-10.3) mg/dL Calcium panel 09/29/17 Range/Units 13:00 Calcium 9.3 (8.6-10.3) mg/dL Pituitary panel 09/29/17 Range/Units 13:00 Sodium 143 (136-145) mEq/L Potassium 3.6 (3.5-5.1) mEq/L Chloride 111 H (98-107) mEq/L Carbon Dioxide 27 (23-29) mEq/L BUN 23 (8-23) mg/dL Creatinine 0.60 (0.60-1.20) mg/dL Glucose 99 (70-105) mg/dL Calcium 9.3 (8.6-10.3) mg/dL Adrenal panel 09/29/17 Range/Units 13:00 Sodium 143 (136-145) mEq/L Potassium 3.6 (3.5-5.1) mEq/L Chloride 111 H (98-107) mEq/L Carbon Dioxide 27 (23-29) mEq/L BUN 23 (8-23) mg/dL Creatinine 0.60 (0.60-1.20) mg/dL Glucose 99 (70-105) mg/dL Calcium 9.3 (8.6-10.3) mg/dL All other labs normal. - VTE Documentation of Mechanical Device: Intermittent pneumatic compression device
[2017-09-30] MEDS: 0.9 % Sodium Chloride 1,000 ML IVC SCH (00:44)
[2017-09-30 05:31] LABS: Prothrombin Time 10.6 Seconds (9.4-12.1)
[2017-09-30 06:42] VITALS: BP 136/54
--- NOTE | 2017-09-30 07:09 | Discharge Summary ---
Date of Encounter: 09/30/17 Time of Encounter: 07:06 - Discharge Diagnosis (1) Hematuria Priority: Primary Status: Acute Qualifiers: Hematuria type: gross Qualified Code(s): R31.0 - Gross hematuria - Hospital Course Hospital course: Ms. Patten is a 86 year old female who has a history of gross hematuria was seen in the urology clinic on Sep 29 2017. She had gross evidence of blood in her urine. A 22-[place] catheter was placed and she was admitted the hospital. She was handed irrigated and her urine cleared. By hospital day #2 she was doing well. Her urine was clear to very light pink. She was then discharged home. She will arrange follow up back at her residence in [place]. - Time Spent with Patient Total time spent providing and/or coordinating discharge services: Less than 30 minutes Labs on day of discharge: Labs from last 24 hours 09/30/17 09/29/17 09/29/17 04:28 13:00 13:00 WBC 5.4 RBC 3.30 L Hgb 11.7 Hct 34.2 L MCV 103.6 H MCH 35.5 H MCHC 34.2 RDW 14.2 Plt Count 176 MPV 9.0 L Immature Gran % 0.6 Seg Neutrophils % 61.1 Lymphocytes % 26.9 Monocytes % 9.3 Eosinophils % 1.5 Basophils % 0.6 Neutrophils # 3.3 Lymphocytes # 1.5 Monocytes # 0.5 Eosinophils # 0.1 Basophils # 0.0 PT 10.6 INR 1.0 Sodium 143 Potassium 3.6 Chloride 111 H Carbon Dioxide 27 BUN 23 Creatinine 0.60 Est GFR ( Amer) > 60 Est GFR (Non-Af Amer) > 60 BUN/Creatinine Ratio 38 H Glucose 99 Calculated Osmolality 300 Calcium 9.3 - Discharge Medications Prescriptions: Cephalexin [Keflex] 500 mg PO BID #10 capsule HYDROcodone/Acet 5/325 mg [Calvin 5-325 mg] 1 tab PO Q6H PRN 3 Days #10 tab PRN Reason: Pain Home Medications: Losartan/HCTZ [Hyzaar 50-12.5 Tablet] 1 each PO DAILY 12/24/14 [History] [place]-3 Fatty Acids [Fish Oil] 1,000 mg PO BID 12/24/14 [History] Omeprazole [PriLOSEC] 40 mg PO DAILY 08/04/15 [History] Potassium Chloride 10 meq PO DAILY 12/24/14 [History] Simvastatin 20 mg PO HS 12/24/14 [History] clonazePAM [Klonopin] 0.5 mg PO HS PRN 12/24/14 [History] Alendronate Sodium [Fosamax] 70 mg PO WE 06/18/16 [History] Acetaminophen [Tylenol] 325 mg PO Q4HR PRN #30 tablet 07/17/16 [Rx] Cefdinir [Omnicef] 300 mg PO BID #14 capsule 07/17/16 [Rx] Cephalexin [Keflex] 500 mg PO BID #10 capsule 09/30/17 [Rx] HYDROcodone/Acet 5/325 mg [[place]vin 5-325 mg] 1 tab PO Q6H PRN 3 Days #10 tab 09/30 [Rx] Allergies/Adverse Reactions: 3 Allergy/AdvReac Type Severity Reaction Status Date / Time CURTIS Inhibitors AdvReac Cough Verified 07/12/16 13:52 Date of admission: 09/29/17 11:59 Primary care physician: Lizabeth Cummings DO Discharging clinician: Gio Sutton Anticipated date of discharge: 09/30/17 Exam Initial Vital Signs Temp Pulse Resp BP Pulse Ox 97.9 F 58 16 141/68 98 09/29/17 12:20 09/29/17 12:20 09/29/17 12:20 09/29/17 12:20 09/29/17 12:20 - General physical appearance Present: well developed, well nourished, no distress - Eyes Absent: icteric - ENT Present: normal nares - Neck Present: trachea midline - Respiratory Present: normal respiratory effort - Cardiovascular Cardiovascular exam IM: RRR - Abdomen Abdomen: Present: soft - Genitourinary Present: other (Catheter in place with clear to very light pink urine.) - Neurologic Present: normal coordination - Musculoskeletal Present: other (grossly normal) - Patient Status Disposition: Home, Self-Care Condition: Good Functional capacity at discharge: independent ambulation Overall status at discharge: patient is progressing back to baseline - Discharge Instructions Follow Up With: Lizabeth Cummings DO [Primary Care Provider] - Additional Instructions: Please provide catheter care instructions - leg bag, night bag, leg strap and how to change the bags appropriately. She should follow-up with her primary care provider in [place] next week. She can remove her catheter on October 03 or 2017. She should return or seek out further care for worsening hematuria. - Diet and Activity Activity: increase activity as tolerated Diet: advance to your usual diet - VTE Documentation of Mechanical Device: Intermittent pneumatic compression device
[2017-09-30] MEDS ORDERED: Losartan/HCTZ 50-12.5 TABLET PO SCH (09:00)
== END 2017-09-30 11:07 | disposition home or self-care (01) ==
LOC: 3ANU
PROVIDERS: ADMIT Urology; ATTEND Urology